=== PATIENT | male | born 1955 | race Caucasian/White ===

== ENCOUNTER → 2016-11-11 | Outpatient (CLI) | payer OTHER ==
[~2016-11-11] MED LIST: AMIT10TA PO; METO25TA2 PO; PANT20TA2 PO; VALS1TAB3 PO
[2016-11-11 08:05] LABS: ASPARTATE AMINO TRANSFERASE 11 U/L (15-37); BLOOD UREA NITROGEN 19 mg/dL (7-18)
== END | disposition home or self-care (01) ==
LOC: LAB 07:39
PROVIDERS: ATTEND Internal Medicine
DX: E78.5 Hyperlipidemia, unspecified (principal); N40.0 Benign prostatic hyperplasia without lower urinary tract symptoms; E87.8 Other disorders of electrolyte and fluid balance, not elsewhere classified
CPT/HCPCS: 36415; 80053; 80061; 84153

== ENCOUNTER → 2017-02-28 | Outpatient (CLI) | payer OTHER ==
[2017-02-28 11:54] LABS: HEMATOCRIT 49.7 % (39.2-51.8); HEMOGLOBIN 16.7 g/dL (13.7-18.0); WHITE BLOOD COUNT 8.9 x10^3/uL (3.4-10)
== END | disposition home or self-care (01) ==
LOC: LAB 11:38
PROVIDERS: ATTEND Internal Medicine
DX: D64.9 Anemia, unspecified (principal); E55.9 Vitamin D deficiency, unspecified
CPT/HCPCS: 36415; 82306; 85025

== ENCOUNTER → 2017-05-23 | Outpatient (CLI) | payer OTHER | END | disposition home or self-care (01) | LOC: LAB 09:26 | PROVIDERS: ATTEND Internal Medicine | DX: E55.9 Vitamin D deficiency, unspecified (principal) | CPT/HCPCS: 36415; 82306 ==

== ENCOUNTER → 2018-01-31 | Outpatient (CLI) | payer OTHER | END | disposition home or self-care (01) | LOC: RAD 14:25 | PROVIDERS: ATTEND Orthopaedic Surgery | DX: R60.9 Edema, unspecified (principal); M25.571 Pain in right ankle and joints of right foot; Z91.09 Other allergy status, other than to drugs and biological substances ==

== ENCOUNTER → 2018-04-26 | Outpatient (CLI) | payer OTHER ==
[~2018-04-26] MED LIST changes: +FAMO40TA61 PO; +OMEP-110 PO
[2018-04-26 12:36] LABS: ALANINE AMINOTRANSFERASE 33 U/L (12-78); ALBUMIN 3.3 g/dL (3.4-5.0); ANION GAP 8 mmol/L (5-15); CALCIUM 8.3 mg/dL (8.5-10.1); CHLORIDE 106 mmol/L (98-107); CREATININE 1.18 mg/dL (0.7-1.3)
[2018-04-26 12:39] LABS: ALKALINE PHOSPHATASE 89 U/L (45-117); BILIRUBIN,TOTAL 0.8 mg/dL (0.2-1.0); TOTAL PROTEIN 6.5 g/dL (6.4-8.2)
== END | disposition home or self-care (01) ==
LOC: STAR 11:36
PROVIDERS: ATTEND Orthopaedic Surgery
DX: Z01.818 Encounter for other preprocedural examination (principal); M25.571 Pain in right ankle and joints of right foot
CPT/HCPCS: 36415; 80053; 93005

== ENCOUNTER → 2018-04-27 | Outpatient (CLI) | payer OTHER | END | disposition home or self-care (01) | LOC: RAD 08:31 | PROVIDERS: ATTEND Otolaryngology | DX: H95.12 Granulation of postmastoidectomy cavity (principal) | CPT/HCPCS: 70480 ==

== ENCOUNTER 2018-05-11 10:50 | Day surgery (SDC) | payer OTHER ==
[~2018-05-11] VITALS: Ht 182.9 cm; Wt 93.0 kg
[2018-05-11] MEDS ORDERED: MIDAZOLAM 1 MG/ML, 2ML ONE (11:11)
[2018-05-11] MEDS ORDERED: FENTANYL PF 100 MCG/2ML ONE (11:11)
[2018-05-11] MEDS ORDERED: PROPOFOL 50 ML ONE ×2 (11:18→13:54)
[2018-05-11 11:31] VITALS: BP 169/82
[2018-05-11] MEDS ORDERED: LACTATED RINGERS 1,000 ML IV SCH (11:34)
[2018-05-11] MEDS ORDERED: SCOPOLAMINE PATCH, 1.5MG PATCH.TD72 TD ONE (12:00)
[2018-05-11] MEDS ORDERED: ONDANSETRON ODT 8 MG PO ONE (12:00)
[2018-05-11] MEDS ORDERED: GABAPENTIN 300 MG CAPSULE PO ONE (12:00)
[2018-05-11] MEDS ORDERED: APREPITANT 40 MG CAPSULE PO ONE (12:00)
[2018-05-11] MEDS ORDERED: ACETAMINOPHEN 500 MG TABLET PO ONE (12:00)
[2018-05-11] MEDS ORDERED: LIDOCAINE PF 2%, 5ML ONE (13:07)
[2018-05-11] MEDS ORDERED: CEFAZOLIN 1,000 MG ONE (13:56)
[2018-05-11] MEDS ORDERED: PROPOFOL 10 MG/ML, 20ML ONE (13:56)
[2018-05-11] MEDS ORDERED: DEXAMETHASONE 4 MG/ML, 1ML ONE (13:56)
[2018-05-11] MEDS ORDERED: HYDROmorphone 1 MG/ML, 1ML IV PRN (14:00)
[2018-05-11] MEDS ORDERED: PROMETHAZINE 25 MG/ML, 1ML IM PRN (14:00)
[2018-05-11] MEDS ORDERED: LABETALOL 5MG/ML, 20ML IV PRN (14:00)
[2018-05-11] MEDS ORDERED: ONDANSETRON 2MG/ML, 2ML IV PRN (14:00)
[2018-05-11] MEDS ORDERED: OXYcodone 5 MG/5 ML ORAL.SOL UDC PO PRN (14:00)
[2018-05-11] MEDS ORDERED: FENTANYL PF 100 MCG/2ML IV PRN (14:00)
[2018-05-11] MEDS ORDERED: ALBUTEROL/IPRATROPIUM 2.5MG/0.5MG, 3 ML NPPB PRN (14:00)
[2018-05-11] MEDS ORDERED: MIDAZOLAM 1 MG/ML, 2ML IV PRN (14:00)
== END 2018-05-11 17:00 | disposition home or self-care (01) ==
LOC: OUT 10:50
PROVIDERS: ATTEND Orthopaedic Surgery
DX: M24.671 Ankylosis, right ankle (principal); M25.371 Other instability, right ankle; I10 Essential (primary) hypertension; K21.9 Gastro-esophageal reflux disease without esophagitis; G47.33 Obstructive sleep apnea (adult) (pediatric); Z79.899 Other long term (current) drug therapy; Z87.891 Personal history of nicotine dependence; Z72.89 Other problems related to lifestyle
CPT/HCPCS: 27695; 29898; 64447; C1713; J0690; J1100; J2250; J2704; J3010; J7120; J8501; Q0162

== ENCOUNTER → 2020-08-05 | Outpatient (CLI) | payer OTHER ==
[~2020-08-05] MED LIST changes: +GADOTERATE 10 MMOL/20 ML VIAL ONE
== END | disposition home or self-care (01) ==
LOC: RAD 16:26
PROVIDERS: ATTEND Otolaryngology
DX: H71.21 Cholesteatoma of mastoid, right ear (principal)
CPT/HCPCS: 70553; A9575